=== PATIENT | female | born 1945 | race African-American/Black ===

== ENCOUNTER 2024-07-18 04:33 | Observation (INO) | payer MEDICARE, OTHER, SELFPAY ==
[2024-07-17 21:26] VITALS: BP 146/69
[2024-07-17 21:27] VITALS: BP 146/69
[2024-07-17 21:33] VITALS: BMI 23.8
[2024-07-17 21:36] LABS: Glucose - Point of Care 122 mg/dl (70-99)
[2024-07-17 22:00] VITALS: BP 152/74
[2024-07-17 22:12] LABS: Hematocrit 38.8 % (37.0-47.0); Hemoglobin 12.8 g/dL (12.0-16.0); Mean Corpuscular Volume 90.9 fL (81.0-99.0); Mean Platelet Volume 10.3 fL (7.4-10.4); Platelet Count 168 10^3/uL (130-400); Red Blood Cell Count 4.27 10^6/uL (4.20-5.40); Red Cell Dist. Width 13.3 % (11.5-14.5); White Blood Cell Count 5.2 10^3/uL (4.8-10.8)
[2024-07-17 22:14] LABS: ALT (SGPT) 76 U/L (0-35); AST (SGOT) 41 U/L (14-36); Albumin 3.7 g/dl (3.5-5.0); Alkaline Phosphatase 61 U/L (38-126); Blood Urea Nitrogen 21 mg/dl (7-17); Carbon Dioxide 30 mmol/L (22-30); Chloride 100 mmol/L (98-107); Creatine Phosphokinase 93 U/L (30-135); Estimated Creatinine Clearance 48 ml/min; Glucose 138 mg/dl (70-99); Lipase 111 U/L (23-300); Potassium 3.4 mmol/L (3.5-5.1); Sodium 135 mmol/L (135-145); Total Bilirubin 0.3 mg/dl (0.2-1.3); Total Protein 6.2 g/dl (6.3-8.2); eGFR > 60.00
[2024-07-17 22:20] LABS: C-Reactive Protein < 5.00 mg/L (0.0-10.00)
[2024-07-17 22:26] LABS: Troponin I < 0.012 ng/ml
[2024-07-17 22:29] LABS: D-Dimer < 0.27 ug/mlFEU (0.00-0.50)
[2024-07-17 22:46] LABS: Erythrocyte Sed Rate 9 mm/hour (0-20)
[2024-07-17 23:00] VITALS: BP 125/61
[2024-07-17 23:06] LABS: % Eosinophils 3.8 % (0-6); % Immature Granulocytes 0.4 % (0-0.5); % Lymphocytes 54.8 % (20.5-51.1); % Monocytes 15.8 % (1.7-9.3); % Neutrophils 24.2 % (42.2-75.2); Absolute Basophils 0.1 10^3/uL (0-0.2); Absolute Eosinophils 0.2 10^3/uL (0-0.7); Absolute Lymphocytes 2.9 10^3/uL (1.2-3.4); Absolute Monocytes 0.8 10^3/uL (0.1-0.6); Absolute Neutrophils 1.3 10^3/uL (1.4-6.5); Nucleated Red Blood Cells % 0 %
[2024-07-17] MEDS: TORADOL 15 MG IV (23:12)
[2024-07-18 00:28] VITALS: BP 138/64
[2024-07-18 01:00] VITALS: BP 137/64
--- NOTE | 2024-07-18 01:09 | ED.GENMED ---
History of Present Illness
General
Chief Complaint: Musculo-Skeletal Complaint
Source: patient
Exam Limitations: none
Time Seen by Provider: 07/17/24 21:30
Nursing documentation reviewed up to this point in time: agreed with
History of Present Illness
History of Present Illness:
78-year-old female with a past medical history of hypertension, hyperlipidemia, GERD who presents to the emergency department for evaluation of right arm discomfort. Patient reports what she describes as 'heaviness' in her right arm. She says that
it feels heavy and achy in the posterior upper arm from the shoulder down towards the elbow. She denies any numbness or paresthesias. She says she also has some heaviness/achiness of her right leg. She says that symptoms started this morning
midmorning, she was able to do her chores throughout the day but symptoms were not improving and tonight while she was laying in bed she says she felt that something was not right and decided to come to the hospital. She denies any neck pain or
back pain. Denies any headache. She denies any change in her vision or speech. She denies any similar symptoms in the past.
Review of Systems
Review of Systems
All Other Systems: ROS reviewed and negative except as documented in HPI and ROS
Constitutional: Denies fever or chills
Respiratory: Denies trouble breathing
Cardiac: Denies chest pain
ABD/GI: Denies abdominal pain, nausea or vomiting
Musculoskeletal: Reports other (Arm and leg achiness/heaviness); Denies neck pain or back pain
Neurological: Reports weakness; Denies dizzy, headache or numbness
Phy Exam
Physical Exam
Physical Exam:
General: Awake, alert, oriented x3 and very pleasant; no acute distress
Head: Normocephalic, atraumatic
Eyes: Conjunctiva normal, EOMI, pupils equal round and reactive to light bilaterally
Throat: Airway intact, handling secretions
Neck: Trachea midline, supple without meningismus
Lungs: Clear to auscultation bilaterally, no wheezing, rales, rhonchi
Heart: Regular rate and rhythm, no murmurs, gallops, or rubs
Abd: Soft, non distended, nontender
Neuro: Cranial nerves intact, speech fluid with no dysarthria or aphasia; she does have some drift in the right arm as well as the right leg; strength and sensation intact left upper and lower extremity
Skin: no rash in area of concern
Extremities: No edema in extremities, equal pulses in all extremities; she has no tenderness in the arm or the leg on the right, full range of motion all joints of the upper and lower extremities without apparent pain
Scores
Heart Failure Risk
Heart Failure Risk Score: Not Applicable
Heart Score for Chest Pain Patients
STEMI patient?: Not applicable
Withdrawal Assessment of Alcohol
Withdrawal Assessment Completed?: Not applicable
Course
Orders/Labs/Results
Orders:
Orders
07/17/24 21:40
Electrocardiogram (*1) Urgent
Reason for Study: Chest Pain
EKG- Treatment ONCE
CR Humerus - Right Min 2 View* Urgent
Comment:
Reason For Exam: right arm pain
07/17/24 21:51
CPK [Creatine Phosphokinase] Urgent
CRP [C-Reactive Protein] Urgent
Complete Blood Count/With Diff Urgent
Comprehensive Metabolic Panel Urgent
D-Dimer Urgent
ESR [Erythrocyte Sed Rate] Urgent
Lipase Urgent
Troponin I Urgent
07/17/24 22:54
Ketorolac [Toradol] 15 mg IV NOW STA
07/17/24 23:23
CT Head W/o Iv Contrast Urgent
Comment:
Reason For Exam: right arm and leg heaviness
Abnormal Lab Results
07/17/24 07/17/24
21:34 21:51
Absolute Neuts (auto) 1.3 L 10^3/uL
(1.4-6.5)
Absolute Monos (auto) 0.8 H 10^3/uL
(0.1-0.6)
Neutrophils % 24.2 L %
(42.2-75.2)
Lymphocytes % 54.8 H %
(20.5-51.1)
Monocytes % 15.8 H %
(1.7-9.3)
Potassium 3.4 L mmol/L
(3.5-5.1)
BUN 21 H mg/dl
(7-17)
Glucose 138 H mg/dl
(70-99)
AST 41 H U/L
(14-36)
ALT 76 H U/L
(0-35)
Total Protein 6.2 L g/dl
(6.3-8.2)
POC Glucose 122 H mg/dl
(70-99)
07/17/24 21:51
07/17/24 21:51
Vital Signs
Initial and Last Documented VS:
Initial Vital Signs
BP
146/69
07/17/24 21:26
Last Documented Vital Signs
Temp Pulse Resp BP Pulse Ox
36.4 C 69 14 125/61 99
07/17/24 21:27 07/18/24 00:15 07/18/24 00:15 07/17/24 23:00 07/17/24 23:15
MDM/Problems Addressed
Differential Diagnosis Includes:
Arm heaviness/achiness: Patient is vague in her description of her symptoms she at various times says that her arm 'bothers me' 'feels heavy' 'is aching'--she seems to have symptoms in the arm and the leg must consider stroke although if this is
pain that would be atypical heaviness could be her descriptor of weakness and certainly she has weakness on exam; differential forearm pain would be muscular strain, referred cardiac pain, DVT much less likely without edema, rheumatologic issues
also consideration
MDM/Problems Addressed:
78-year-old female presents with heaviness/achiness of her right arm, also having symptoms in the right leg. Started this morning and have been constant and worsening. Marginal hypertension otherwise normal vitals. Physical exam as above. Labs
were sent off including a CBC and a CMP which were unremarkable. She had an undetectable troponin. D-dimer negative. X-ray of the humerus no acute abnormality on my review. CT head negative for any acute pathology. Patient is very vague about
her history but she is clear that her arm feels heavy and she does have objective weakness; her right leg issue seems to be more of an arthritic issue�she has chronic hip pain from arthritis and I suspect that some of her weakness in the leg on exam
may be from arthritis pain although she says it feels somewhat unusual today. Certainly this could be a radiculopathy in her right arm that caused weakness and some arthritis pain causing issues in the leg but I think with her age and risk factors
she should be ruled out for stroke. Will admit for neurology consultation. Discussed with hospitalist.
Chronic conditions affecting care:
Hypertension, hyperlipidemia
Acute Exacerbation and/or Progression of Chronic Illness:
Acutely hypertensive improved without intervention continue to monitor but no additional antihypertensives indicated
Acute Exacerbation and/or Progression of Chronic Illness: HTN
*Radiology
Radiology exam reviewed: preliminary read by ED provider and radiology read reviewed
*Pulse Oximetry
Patient hypoxic: no
*EKG
Interpreted by ED Provider?: Yes
Heart Rate: 61
Rate: normal
Rhythm: sinus
[place]: normal axis
Interval: normal interval
QRS Pattern: normal QRS
Ischemia: no ischemia
*Critical Care Note
Total Time (30-74mins, 75-104mins- exclusive of procedures): Not Applicable
Data Reviewed
Review of Other/Old Records Reveals: Labs and Records
Source: patient
Patient Management
Discussion with other providers: Hospitalist (Discussed with hospitalist)
Escalation/DeEscalation of care consider admission/obs:
Admission indicated
ED Attending Note
-
Portions of this chart may have been created with voice recognition software.� Occasional wrong word or��sound alike� substitutions may have occurred due to the inherent limitations of voice recognition software.
Discharge Plan
Departure
Discharge Problem:
Right arm weakness
Prescriptions:
No Action
hydrochlorothiazide 25 mg Tablet
25 mg PO DAILY
losartan 100 mg Tablet
100 mg PO DAILY
rosuvastatin 40 mg Tablet
40 mg PO QPM
darifenacin 15 mg Tablet Extended Release 24 Hr
15 mg PO DAILY
Gemtesa 75 mg Tablet
75 mg PO DAILY
Referrals:
[facility] [Other]
Interventions
Interventions:
*Risk Screen - Suicide Last Done: 07/17/24 21:39
*General Assessment Last Done: 07/17/24 21:39
*Neglect/Abuse Screening Last Done: 07/17/24 21:39
*ED COVID-19 Vaccine History Last Done: 07/17/24 21:39
ED-Musculoskeletal Assessment Last Done: 07/17/24 22:02
Discharge Date and Time
Print Language: BURUNDIAN
[2024-07-18] MEDS: ASPIRIN 325 MG PO (01:37)
--- NOTE | 2024-07-18 04:13 | HPS.HSE ---
Family Physician
-
Family Physician: [facility]
Chief Complaint
-
R arm heaviness
History of Present Illness
Patient is a 78y F with PMH significant for hypertension who presents to ED complaining of R heaviness that has lasted for much of the day. Patient states that she first noted a heavy sensation in the R arm around 10 AM. She did not think much
of it and went about her day. She states that she was not limited in her activities. She noted no evident weakness or ataxia. She is R-hand dominant.
Around 8PM this evening, patient states that the heaviness intensified and became 'discomfort'. She denies any sharp pain, paresthesias or numbness.
Patient denies any noted symptoms involving the L arm, either leg, etc.
She denies any vision changes, headache, slurred speech, etc.
Patient took her BP twice throughout the day and notes that it was 'very high'. She notes that her BP was also elevated for EMS.
At the time of my examination patient is sleeping comfortably. She wakes easily and has no new complaints. She continues to feel a sense of heaviness in the RUE.
Medical History
Past Medical History
Past Medical History: Reports Other
Additional Past Medical History:
Hypertension
Dyslipidemia
OAB
Past Surgical History: Reports Other
Additional Past Surgical History:
T&A
Hysterectomy
Social History
Tobacco: Non-smoker
Alcohol: Occasional
Drug: None
Family History
Family History: Hypertension and Other (Strokes)
Allergies / Home Medications
Allergies reflects when Allergies were last updated in [employer].
Home Medications with original date entered in [employer]
Allergy/Medication List:
Allergies
Allergy/AdvReac Type Severity Reaction Status Date / Time
Penicillins Allergy Itching Verified 07/17/24 21:33
Home Medications
darifenacin 15 mg tablet,extended release 24 hr 15 mg PO DAILY 07/17/24
hydrochlorothiazide 25 mg tablet 25 mg PO DAILY 07/17/24
losartan 100 mg tablet 100 mg PO DAILY 07/17/24
rosuvastatin 40 mg tablet 40 mg PO QPM 07/17/24
vibegron 75 mg tablet (Gemtesa) 75 mg PO DAILY 07/17/24
Review of Systems
-
History Source: Patient
A 12 point ROS was completed and negative except as noted: Yes
Constitutional: Denies Fever or Chills
Respiratory: Denies Cough or Trouble Breathing
Cardiac: Denies Chest Pain or Palpitations
Abdomen/GI: Denies Abdominal Pain, Nausea, Vomiting or Diarrhea
: Denies Dysuria or Frequency
Musculoskeletal: Reports Muscle Pain; Denies Joint Pain or Edema
Neurological: Reports Other (Heaviness sensation.); Denies Dizzy, Headache, Weakness or Numbness
Physical Exam
Vital Signs
Vital Signs
Temp Pulse Resp BP Pulse Ox
97.6 F 64 15 137/64 97
07/17/24 21:27 07/18/24 02:45 07/18/24 02:45 07/18/24 01:00 07/18/24 02:45
Physical Exam
General: Other (78y F in no acute distress.)
HEENT: Moist mucous membranes and PERRLA
Respiratory: Clear; No Wheezes, Rales or Rhonchi
Cardiac: S1/S2 and Regular Rhythm; No Murmur
GI: Soft, Non Tender, Non Distended and Normal Bowel Sounds
Musculoskeletal: No Clubbing, No Cyanosis and No Edema
Neuro: AO x 3 and Other (Weakness is appreciated in the RUE and RLE compared to the L. No significant ataxia. Sensation seems intact.)
Laboratory Results
-
07/17/24 21:51
07/17/24 21:51
Laboratory Results
Total Bilirubin 0.3 mg/dl (0.2-1.3) 07/17/24 21:51
AST 41 U/L (14-36) H 07/17/24 21:51
ALT 76 U/L (0-35) H 07/17/24 21:51
Alkaline Phosphatase 61 U/L (38-126) 07/17/24 21:51
Troponin I < 0.012 ng/ml 07/17/24 21:51
Lipase 111 U/L (23-300) 07/17/24 21:51
Impression/Plan
-
A/P: Patient is a 78y F with PMH significant for HTN who presents to ED complaining of RUE heaviness that has persisted for much of the day.
RUE Heaviness
CVA / TIA
- Observe overnight for further evaluation and treatment.
- CT unremarkable in the ED.
- Check MRI in the AM.
- Follow for changes in neurologic exam.
- DAPT for now.
- Neuro evaluation / additional work up if abnormality on MRI.
- PT / OT evaluations.
- Follow for any new / worsening symptoms.
Benign Hypertension
- Reportedly quite elevated at home, but unremarkable here in the ED.
- Continue current home regimen and adjust as needed.
Dyslipidemia
- Continue statin therapy. Check fasting lipids.
OAB
- Stable. Hold OAB medications for now.
DVT prophylaxis: SCDs
Code Status: Full
[2024-07-18 05:42] VITALS: BMI 22.2
[2024-07-18 05:54] VITALS: BP 165/81
[2024-07-18 07:05] LABS: Hemoglobin 13.3 g/dL (12.0-16.0); Mean Corp Hgb Conc. 33.3 g/dL (33.0-37.0); Mean Corpuscular Hgb 29.9 pg (27.0-31.0); Mean Corpuscular Volume 89.9 fL (81.0-99.0); Mean Platelet Volume 10.4 fL (7.4-10.4); Platelet Count 160 10^3/uL (130-400); Red Blood Cell Count 4.45 10^6/uL (4.20-5.40); Red Cell Dist. Width 13.1 % (11.5-14.5); White Blood Cell Count 4.5 10^3/uL (4.8-10.8)
[2024-07-18 07:30] VITALS: BP 157/80
[2024-07-18 07:36] LABS: Blood Urea Nitrogen 16 mg/dl (7-17); Calcium 8.6 mg/dl (8.4-10.2); Carbon Dioxide 31 mmol/L (22-30); Chloride 103 mmol/L (98-107); Estimated Creatinine Clearance 62 ml/min; Glucose 113 mg/dl (70-99); HDL Cholesterol 67 mg/dl; LDL Cholesterol, Calculated 70 mg/dl; Potassium 3.3 mmol/L (3.5-5.1); Sodium 138 mmol/L (135-145); Total Cholesterol 147 mg/dl (50-199); Triglyceride 50 mg/dl (10-149); Very Low Density Lipoprotein 10 mg/dl (0-30); eGFR > 60.00
[2024-07-18 08:03] LABS: TSH Reflex To Free T4 3.11 uIU/ml (0.47-4.68)
[2024-07-18] MEDS: COZAAR 100 MG PO (09:27)
[2024-07-18] MEDS: PLAVIX 75 MG PO (09:28)
[2024-07-18] MEDS: KCL 40 MEQ PO (09:30)
[2024-07-18 10:10] VITALS: BP 169/86; PULSE 74; O2SAT 100
--- NOTE | 2024-07-18 10:18 | PTOTSP ---
Patient pleasant, receptive and motivated to participate in session.
Demonstrates good insight into safety with mobility, transfers and ambulation without use of AD.
At this time, does not demonstrate further skilled therapy needs and will be discharged. If needs change, please re-consult PT.
--- NOTE | 2024-07-18 10:19 | PTOTSP ---
pt currently demonstrates ability to complete simple ADLs, functional transfers, ambulation with supervision to no assistance. pt demonstrates good ROM, strength BUEs, no overt cognitive deficits noted. no acute OT needs identified, will sign off.
--- NOTE | 2024-07-18 10:23 | PTOTSP ---
Speech Therapy Assessment
Speech, language and swallowing deemed within functional limits. Reviewed outpatient services where comprehensive testing can be completed if patient notices changes/difficulty when returning to daily tasks that require higher level attention and
concentration.
Recommend
1. Remain on regular solids and thin liquids
2. Meds with liquid.
3. No skilled ST indicated in acute setting.
4. Provided patient with outpatient information if she feels more comprehensive assessment is needed.
[2024-07-18 11:09] LABS: Glycohemoglobin (HgbA1c) 5.5 % (4.0-5.6)
--- NOTE | 2024-07-18 11:57 | W.PN.HOSP.TC ---
Today's Communication/Plan
-
Assessment / Plan
Assessment / Plan
Gen-AAOx3, NAD
HEENT-NC, AT, anicteric, clear oral mm
Neck-supple
CV-reg, no M, +S1/S2
Lungs-clear B/L
Abd-soft, NT, ND
Musculoskeletal-no edema, no deformity
Skin-warm and dry
Neuro-3/5 strength right hip flexor, no facial asymmetry or dysarthria
Psych-calm, cooperative
Ms. Ventura is a 78-year-old female with a medical history of hypertension and overactive bladder (on vibegron and darifenacin) who presented with right arm heaviness and right leg weakness. Her symptoms began around 10 AM the morning of
presentation and lasted all day. That evening her right arm heaviness became more uncomfortable which led her to seek medical treatment. She noted that her blood pressure has been very high throughout the day on home blood pressure cuff readings.
She denied headaches, dizziness, or neck pain. She reports having a 'pinched nerve' many years ago with similar pain in her right arm and underwent an MRI at that time which revealed degenerative joint disease. She reports significant
cerebrovascular disease on her mother side of the family. The ED she was mildly hypertensive. CT imaging of her brain showed no acute intracranial abnormality. X-ray of her right humerus showed no acute abnormalities. She has been admitted for
further evaluation and management of suspected CVA. She has been started on aspirin and Plavix.
Suspected stroke:
-Presented with acute onset right upper and lower extremity weakness
-No acute abnormalities on CT brain
-Started on aspirin and Plavix, continue home statin
-MRI reveals no acute intracranial abnormality
-PT/OT evaluated, patient independent with ADLs
-X [employer] SERVICE TECHNICIAN evaluation, patient able to tolerate regular diet
-At this point stroke has been ruled out, symptoms may have been related to reported uncontrolled blood pressure, no need to continue Plavix, would recommend continuing low-dose aspirin considering strong family history of cerebrovascular disease,
patient is advised to avoid NSAIDs and discontinue aspirin if she develops dyspepsia or GI bleeding, will add PPI for GI PPx, renal function currently within normal limits
-Continue home antihypertensive regimen of losartan 100 mg daily and HCTZ 25 mg daily with addition of low-dose amlodipine
-Will discharge to home with instructions to follow-up closely with her PCP for ongoing blood pressure monitoring and doses adjustments as needed
Hypokalemia:
-Mild, serum potassium 3.3
-Repleted
CODE STATUS:
Anticipated Discharge: Today
Subjective/Interval History
-
Date of Service: July 18, 2024
Patient was seen and examined at bedside this morning. Still has right arm discomfort and weakness of her right upper and lower extremities compared to left. Awaiting MRI.
Objective Data
-
Labs:
Laboratory Results
07/18/24
06:49
WBC 4.5 L
Hgb 13.3
Hct 40.0
Plt Count 160
Sodium 138
Potassium 3.3 L
Chloride 103
Carbon Dioxide 31 H
BUN 16
Creatinine 0.7
Glucose 113 H
Calcium 8.6
Vital Signs:
Vital Signs
Temp Pulse Resp BP Pulse Ox
97.6 F 67 16 157/80 99
07/18/24 05:54 07/18/24 07:30 07/18/24 07:30 07/18/24 07:30 07/18/24 07:30
Review of Systems
-
History Source: Patient
All other systems: Reviewed and negative
Neuro: Reports Weakness (Right upper and lower extremities)
Physical Exam
-
General: No Apparent Distress
[2024-07-18 11:59] VITALS: BP 150/80
--- NOTE | 2024-07-18 13:33 | W.DCSUMMARY ---
Discharge Summary
Discharge Data
Date of Admission: 07/18/24
Date of Discharge: 07/18/24
-
Pending Results: No
Hospital Course
Ms. Ventura is a 78-year-old female with a medical history of hypertension and overactive bladder (on vibegron and darifenacin) who presented with right arm heaviness and right leg weakness. Her symptoms began around 10 AM the morning of
presentation and lasted all day. That evening her right arm heaviness became more uncomfortable which led her to seek medical treatment. She noted that her blood pressure has been very high throughout the day on home blood pressure cuff readings.
She denied headaches, dizziness, or neck pain. She reports having a 'pinched nerve' many years ago with similar pain in her right arm and underwent an MRI at that time which revealed degenerative joint disease. She reports significant
cerebrovascular disease on her mother side of the family. The ED she was mildly hypertensive. CT imaging of her brain showed no acute intracranial abnormality. X-ray of her right humerus showed no acute abnormalities. She has been admitted for
further evaluation and management of suspected CVA. She was started on aspirin and Plavix.
MRI revealed no acute intracranial abnormality. Right upper and lower extremity discomfort and weakness improved. She was evaluated by PT/OT who felt she was able to conduct all ADLs independently. After evaluation by speech-language pathologist
she was continued on diet of regular solids and thin liquids. Stroke was ruled out. Plavix was discontinued but she will be continued on low-dose aspirin considering strong history of cerebrovascular disease and started on a PPI for GI
prophylaxis. She will also be started on low-dose amlodipine for better blood pressure control. She has been instructed to follow-up closely with her primary care physician for continued blood pressure monitoring and dosage adjustments as needed.
She was deemed medically stable for discharge to home with outpatient follow-up.
Gen-AAOx3, NAD
HEENT-NC, AT, anicteric, clear oral mm
Neck-supple
CV-reg, no M, +S1/S2
Lungs-clear B/L
Abd-soft, NT, ND
Musculoskeletal-no edema, no deformity
Skin-warm and dry
Neuro-4/5 strength right hip flexor, no facial asymmetry or dysarthria
Psych-calm, cooperative
Discharge Plan
-
Patient Disposition: Home (Routine Discharge)
Discharge Diagnosis/Procedures: Right upper and lower extremity weakness, hypertension
Diet: Low Sodium
Activity: As tolerated
Activity Restrictions/Additional Instructions:
Ms. Ventura is a 78-year-old female with a medical history of hypertension and overactive bladder (on vibegron and darifenacin) who presented with right arm heaviness and right leg weakness. Her symptoms began around 10 AM the morning of
presentation and lasted all day. That evening her right arm heaviness became more uncomfortable which led her to seek medical treatment. She noted that her blood pressure has been very high throughout the day on home blood pressure cuff readings.
She denied headaches, dizziness, or neck pain. She reports having a 'pinched nerve' many years ago with similar pain in her right arm and underwent an MRI at that time which revealed degenerative joint disease. She reports significant
cerebrovascular disease on her mother side of the family. The ED she was mildly hypertensive. CT imaging of her brain showed no acute intracranial abnormality. X-ray of her right humerus showed no acute abnormalities. She has been admitted for
further evaluation and management of suspected CVA. She was started on aspirin and Plavix.
MRI revealed no acute intracranial abnormality. Right upper and lower extremity discomfort and weakness improved. She was evaluated by PT/OT who felt she was able to conduct all ADLs independently. After evaluation by speech-language pathologist
she was continued on diet of regular solids and thin liquids. Stroke was ruled out. Plavix was discontinued but she will be continued on low-dose aspirin considering strong history of cerebrovascular disease and started on a PPI for GI
prophylaxis. She will also be started on low-dose amlodipine for better blood pressure control. She has been instructed to follow-up closely with her primary care physician for continued blood pressure monitoring and dosage adjustments as needed.
She was deemed medically stable for discharge to home with outpatient follow-up.
Referrals:
[facility] [Other]
Prescriptions:
New
aspirin 81 mg Tablet,Chewable
81 mg PO DAILY 30 Days Qty: 30 0RF
lansoprazole 15 mg capsule,delayed release(DR/EC)
15 mg PO DAILY Qty: 30 0RF
amlodipine 2.5 mg tablet
2.5 mg PO DAILY Qty: 30 0RF
Continued
hydrochlorothiazide 25 mg Tablet
25 mg PO DAILY
losartan 100 mg Tablet
100 mg PO DAILY
rosuvastatin 40 mg Tablet
40 mg PO QPM
darifenacin 15 mg Tablet Extended Release 24 Hr
15 mg PO DAILY
Gemtesa 75 mg Tablet
75 mg PO DAILY
Discharge Orders:
Discharge Patient (As Directed); Ordered 07/18/24
Ordered By: Thomas Colby
Discharge Date and Time
Print Language: WELSH
[2024-07-18 20:15] LABS: Hepatitis C Antibody Negative (Negative)
== END 2024-07-18 15:49 | disposition home or self-care (01) ==
LOC: 3 WEST ACU 04:33
PROVIDERS: ADMITTING PHYSICIAN Hospitalist; ATTENDING PHYSICIAN Internal Medicine; EMERGENCY PHYSICIAN Emergency Medicine
DX: M79.601 Pain in right arm (principal); R53.1 Weakness; I10 Essential (primary) hypertension; E78.5 Hyperlipidemia, unspecified; K21.9 Gastro-esophageal reflux disease without esophagitis; R07.9 Chest pain, unspecified; N32.81 Overactive bladder; G31.9 Degenerative disease of nervous system, unspecified; E87.6 Hypokalemia; Z79.899 Other long term (current) drug therapy; Z88.0 Allergy status to penicillin
CPT/HCPCS: 70450; 70551; 73060; 80048; 80053; 80061; 82550; 82962; 83036; 83690; 84443; 84484; 85025; 85027; 85379; 85652; 86140; 86803; 92523; 92610; 93005; 96374; 97162; 97165; 97530; 99285; G0378